=== PATIENT | female | born 2005 | race Caucasian/White ===

== ENCOUNTER 2023-06-09 23:48 | Emergency (ER) | payer BC ==
[2023-06-10] MEDS ORDERED: Dexameth. Sod Phosp. 10 MG/ML (CHEMO USE ONLY) ONE (01:09)
[2023-06-10] MEDS ORDERED: Metoclopramide HCl 10 MG/2 ML VIAL ONE (01:09)
[2023-06-10] MEDS ORDERED: Ketorolac Tromethamine 30 MG/ML VIAL ONE (01:09)
[2023-06-10 02:00] LABS: SARS-CoV-2 NAA Rapid Test Not Detected (NotDetected)
== END 2023-06-10 01:51 | disposition home or self-care (01) ==
LOC: ERS 23:48
DX: R51.9 Headache, unspecified (principal); Z20.822 Contact with and (suspected) exposure to COVID-19
CPT/HCPCS: 96374; 96375; J1100; J1885; J2765